=== PATIENT | male | born 1970 | race African-American/Black ===

== ENCOUNTER 2018-01-12 18:39 | Emergency (ER) | payer BC ==
[2018-01-12] MEDS ORDERED: diphenhydrAMINE 50 MG/ML SDV IVPUSH ONE (21:26)
[2018-01-12] MEDS ORDERED: Sodium Chloride 0.9% 1,000 ML IV ONE (21:26)
[2018-01-12] MEDS ORDERED: Ondansetron 4 MG Tab.DIS PO ONE (21:26)
[2018-01-12] MEDS ORDERED: Ketorolac 30 MG/ML SDV IVPUSH ONE (21:26)
[2018-01-12 22:04] LABS: CHLORIDE,CL 99 mmol/L (101-111); SODIUM,NA 130 mmol/L (135-145)
--- NOTE | 2018-01-12 23:09 | EDM.PDOC ---
ED HPI GENERAL MEDICAL PROBLEM - General Chief Complaint: Headache Stated Complaint: [id number] SEVER HEADACHE 4 DAYS FEVER Time Seen by Provider: 01/12/18 21:00 Source of Information: Reports: Patient History Limitations: Reports: No Limitations - History of Present Illness INITIAL COMMENTS - FREE TEXT/NARRATIVE: C/O frontal headache for past week after coming back from [place]. Has had headaches in past but always relieved with tylenol. Has had diarrhea x 8 today. No fevers. Appetite poor and not drinking much fluid today. 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 [No Known Home Meds] 01/12/18 [History] Past Medical History - Past Health History Medical/Surgical History: Denies Medical/Surgical History Social & Family History - Tobacco Use Smoking Status *Q: Never Smoker - Caffeine Use Caffeine Use: Reports: None - Recreational Drug Use Recreational Drug Use: No ED ROS GENERAL - Review of Systems Review Of Systems: See Below Constitutional: Reports: Malaise, Decreased Appetite. Denies: Chills HEENT: Reports: No Symptoms Respiratory: Reports: No Symptoms Cardiovascular: Reports: No Symptoms GI/Abdominal: Reports: Abdominal Pain, Diarrhea (watery) : Reports: No Symptoms Musculoskeletal: Reports: No Symptoms Neurological: Reports: Headache (frontal) - Physical Exam Exam: See Below Exam Limited By: No Limitations General Appearance: Alert, Anxious, Mild Distress Eye Exam: Bilateral Eye: EOMI, PERRL Nose: Normal Inspection Throat/Mouth: Normal Oropharynx Head Exam: Atraumatic, Normocephalic Neck: Normal Inspection, Full Range of Motion, Tender Lateral, Tender Midline. No: Lymphadenopathy (L), Lymphadenopathy (R) Respiratory/Chest: No Respiratory Distress, Lungs Clear, Normal Breath Sounds Cardiovascular: Normal Peripheral Pulses, Regular Rate, Rhythm GI/Abdominal: Normal Bowel Sounds, Soft, Tender (mild generalized). No: Distended, Guarding Neuro Exam (Abbreviated): Alert, Oriented, Normal Cognition Back Exam: Normal Inspection Extremities: Normal Inspection Psychiatric: Normal Affect, Normal Mood Skin Exam: Warm, Dry, Intact Course - Vital Signs Last Recorded V/S: Last Vital Signs Temp 99.8 F 01/12/18 22:20 Pulse 88 01/12/18 22:20 Resp 17 01/12/18 22:20 BP 122/56 L 01/12/18 22:20 Pulse Ox 99 01/12/18 22:20 - Orders/Labs/Meds Labs: Laboratory Tests 01/12/18 01/12/18 Range/Units 21:05 21:05 WBC 5.4 (5.0-10.0) 10^3/uL RBC 5.26 (4.6-6.2) 10^6/uL Hgb 11.6 L (14.0-18.0) g/dL Hct 34.1 L (40.0-54.0) % MCV 64.8 L (80-100) fL MCH 22.1 L (27.0-34.0) pg MCHC 34.0 (33.0-35.0) g/dL Plt Count 103 L (150-450) 10^3/uL Neut % (Auto) 55.3 (42.2-75.2) % Lymph % (Auto) 20.8 (20.5-50.1) % [place] % (Auto) 23.7 H (2-8) % Eos % (Auto) 0.0 L (1.0-3.0) % Baso % (Auto) 0.2 (0.0-1.0) % Add Manual Diff Yes Neutrophils % (Manual) 56 (42-75) % Band Neutrophils % 2 % Lymphocytes % (Manual) 23 (20-50) % Atypical Lymphs % 2 % Monocytes % (Manual) 17 H (2-8) % Sodium 130 L (135-145) mmol/L Potassium 3.2 L (3.6-5.0) mmol/L Chloride 99 L (101-111) mmol/L Carbon Dioxide 24.0 (21.0-31.0) mmol/L Anion Gap 10.2 BUN 14 (7-18) mg/dL Creatinine 1.2 (0.6-1.3) mg/dL Est Cr Clr Drug Dosing 58.14 mL/min Estimated GFR (MDRD) > 60 BUN/Creatinine Ratio 11.66 Glucose 177 H (74-105) mg/dL Calcium 8.5 (8.4-10.2) mg/dl Total Bilirubin 1.0 (0.2-1.0) mg/dL AST 34 (10-42) IU/L ALT 32 (10-60) IU/L Alkaline Phosphatase 70 (42-121) IU/L Total Protein 7.1 (6.7-8.2) g/dl Albumin 3.2 (3.2-5.5) g/dl Globulin 3.9 Albumin/Globulin Ratio 0.82 Amylase 48 (28-100) U/L Lipase 22 (22-51) U/L Meds: Medications Discontinued Medications Generic Name Dose Route Start Last Admin Trade Name Jessica PRN Reason Stop Dose Admin Diphenhydramine HCl 25 mg 01/12/18 21:26 01/12/18 21:32 Benadryl IVPUSH 01/12/18 21:27 25 mg ONETIME ONE Administration Sodium Chloride 1,000 mls @ 999 mls/hr 01/12/18 21:26 01/12/18 21:37 Normal Saline IV 01/12/18 22:26 999 mls/hr .BOLUS ONE Administration Ketorolac Tromethamine 30 mg 01/12/18 21:26 01/12/18 21:32 Toradol IVPUSH 01/12/18 21:27 30 mg ONETIME ONE Administration Ondansetron HCl 4 mg 01/12/18 21:26 01/12/18 21:31 Zofran Odt PO 01/12/18 21:27 4 mg ONETIME ONE Administration Departure - Departure Time of Disposition: 23:04 Disposition: Home, Self-Care 01 Condition: Good Clinical Impression: Gastroenteritis, Dehydration Headache Qualifiers: Headache type: unspecified Headache chronicity pattern: unspecified pattern Intractability: not intractable Qualified Code(s): R51 - Headache - Discharge Information Instructions: Dehydration, Adult, [id number] Referrals: PCP,None [Primary Care Provider] - Forms: ED Department Discharge Additional Instructions: tylenol or ibuprofen for fever increase fluids rest follow up if symptoms worsen
== END 2018-01-12 23:18 | disposition home or self-care (01) ==
LOC: DL.ED 18:39
DX: K52.9 Noninfective gastroenteritis and colitis, unspecified (principal); R51 Headache
CPT/HCPCS: 36415; 80053; 82150; 83690; 85025; 96361; 96374; 96375; 99283; A9270; J1200; J1885; J7030

== ENCOUNTER 2018-01-13 19:11 | Emergency (ER) | payer BC ==
[2018-01-13] MEDS ORDERED: Sodium Chloride 0.9% 10 ML Syringe FLUSH PRN (20:56)
[2018-01-13] MEDS ORDERED: Sodium Chloride 0.9% 1,000 ML IV ONE (20:57)
[2018-01-13] MEDS ORDERED: Ketorolac 30 MG/ML SDV IVPUSH ONE (20:57)
[2018-01-13] MEDS ORDERED: Acetaminophen 325 MG Tab PO ONE (21:29)
[2018-01-13 21:40] LABS: CHLORIDE,CL 101 mmol/L (101-111); SODIUM,NA 131 mmol/L (135-145)
[2018-01-13] MEDS ORDERED: Ibuprofen 600 MG Tab PO ONE (23:17)
[2018-01-13] MEDS ORDERED: Morphine 2 MG/ML Syringe IVPUSH ONE (23:17)
--- NOTE | 2018-01-13 23:21 | EDM.PDOC ---
ED HPI GENERAL MEDICAL PROBLEM - General Chief Complaint: Headache Stated Complaint: SEVERE HEADACHE Time Seen by Provider: 01/13/18 20:20 Source of Information: Reports: Patient, RN, RN Notes Reviewed History Limitations: Reports: No Limitations - History of Present Illness INITIAL COMMENTS - FREE TEXT/NARRATIVE: Pt presents to the ER with c/o headache and fever. Patient states he was seen in the ER the day prior for headache. Patient states the headache has persisted and gotten somewhat worse. He rates the headache a 8-9/10. Patient states he developed a fever and chills today. Patient denies N/V/D today. Patient states he has recently traveled outside the [place] to [place] for 3-4 weeks. He denies any insect bites while in [place]. Patient denies chest pains or SOB. Onset: Gradual Duration: Constant, Getting Worse Location: Reports: Head Quality: Reports: Pressure, Throbbing Severity: Moderate Improves with: Reports: None Worsens with: Reports: None Frontal Head Pain Score (Numeric/FACES): 10 - Related Data Allergies Allergy/AdvReac Type Severity Reaction Status Date / Time No Known Allergies Allergy Verified 01/12/18 19:48 Home Meds: Home Meds . [No Known Home Meds] 01/12/18 [History] Past Medical History - Past Health History Medical/Surgical History: Denies Medical/Surgical History Social & Family History - Family History Family Medical History: Noncontributory - Tobacco Use Smoking Status *Q: Never Smoker - Caffeine Use Caffeine Use: Reports: Soda - Recreational Drug Use Recreational Drug Use: No ED ROS GENERAL - Review of Systems Review Of Systems: ROS reveals no pertinent complaints other than HPI. - Physical Exam Exam: See Below Exam Limited By: Language Barrier General Appearance: Alert, WD/WN, No Apparent Distress Eye Exam: Bilateral Eye: EOMI, Normal Inspection, PERRL (5 brisk) Ears: Normal External Exam, Hearing Grossly Normal Nose: Normal Inspection Throat/Mouth: Normal Inspection, Normal Lips, Normal Teeth, Normal Gums, Normal Oropharynx, Normal Voice, No Airway Compromise Head Exam: Atraumatic, Normocephalic Neck: Normal Inspection, Supple, Non-Tender, Full Range of Motion Respiratory/Chest: No Respiratory Distress, Lungs Clear, Normal Breath Sounds, No Accessory Muscle Use, Chest Non-Tender Cardiovascular: Normal Peripheral Pulses, Regular Rate, Rhythm, No Edema, No Gallop, No JVD, No Murmur, No Rub GI/Abdominal: Normal Bowel Sounds, Soft, Non-Tender, No Organomegaly, No Distention, No Abnormal Bruit, No Mass (Male) Exam: Deferred Rectal (Males) Exam: Deferred Neuro Exam (Abbreviated): Alert, Oriented, CN II-XII Intact, Normal Cognition, Normal Gait, Normal Reflexes, No Motor/Sensory Deficits Back Exam: Normal Inspection, Full Range of Motion, NT Extremities: Normal Inspection, Normal Range of Motion, Non-Tender, No Pedal Edema, Normal Capillary Refill Psychiatric: Normal Affect, Normal Mood Skin Exam: Warm, Dry, Intact, Normal Color, No Rash Course - Vital Signs Last Recorded V/S: Last Vital Signs Temp 99.8 F 01/14/18 00:16 Pulse 89 01/14/18 00:16 Resp 16 01/14/18 00:16 BP 118/72 01/14/18 00:16 Pulse Ox 99 01/14/18 00:16 - Orders/Labs/Meds Orders: Active Orders 24 hr Category Date Time Status Peripheral IV Care [RC] . DIRECTED Care 01/13/18 20:57 Active CULTURE BLOOD [BC] Stat Lab 01/13/18 21:07 Received CULTURE BLOOD [BC] Stat Lab 01/13/18 21:12 Received INFLUENZA A+B AG SCREEN [RM] Stat Lab 01/13/18 21:40 Ordered UA W/MICROSCOPIC [URIN] Stat Lab 01/13/18 22:22 Ordered Blood Culture x2 Reflex Set [OM.PC] Stat Oth 01/13/18 20:57 Ordered Peripheral IV Insertion Adult [OM.PC] Stat Oth 01/13/18 20:56 Ordered Labs: Laboratory Tests 01/13/18 01/13/18 01/13/18 Range/Units 21:07 21:12 21:12 WBC 4.1 L (5.0-10.0) 10^3/uL RBC 5.21 (4.6-6.2) 10^6/uL Hgb 11.4 L (14.0-18.0) g/dL Hct 33.4 L (40.0-54.0) % MCV 64.1 L (80-100) fL MCH 21.9 L (27.0-34.0) pg MCHC 34.1 (33.0-35.0) g/dL Plt Count 83 L (150-450) 10^3/uL Neut % (Auto) 74.3 (42.2-75.2) % Lymph % (Auto) 14.2 L (20.5-50.1) % [place] % (Auto) 10.8 H (2-8) % Eos % (Auto) 0.5 L (1.0-3.0) % Baso % (Auto) 0.2 (0.0-1.0) % Add Manual Diff Yes Neutrophils % (Manual) 71 (42-75) % Band Neutrophils % 5 % Lymphocytes % (Manual) 16 L (20-50) % Monocytes % (Manual) 8 (2-8) % Sodium 131 L (135-145) mmol/L Potassium 3.4 L (3.6-5.0) mmol/L Chloride 101 (101-111) mmol/L Carbon Dioxide 25.0 (21.0-31.0) mmol/L Anion Gap 8.4 BUN 14 (7-18) mg/dL Creatinine 1.2 (0.6-1.3) mg/dL Est Cr Clr Drug Dosing 58.14 mL/min Estimated GFR (MDRD) > 60 BUN/Creatinine Ratio 11.66 Glucose 152 H (74-105) mg/dL Lactic Acid 1.1 (0.5-2.2) mmol/L Calcium 8.3 L (8.4-10.2) mg/dl Total Bilirubin 1.0 (0.2-1.0) mg/dL AST 32 (10-42) IU/L ALT 34 (10-60) IU/L Alkaline Phosphatase 74 (42-121) IU/L Total Protein 6.6 L (6.7-8.2) g/dl Albumin 2.9 L (3.2-5.5) g/dl Globulin 3.7 Albumin/Globulin Ratio 0.78 Urine Color (YELLOW) Urine Appearance (CLEAR) Urine pH (5.0-9.0) Ur Specific [place] (1.005-1.030) Urine Protein (NEGATIVE) Urine Glucose (UA) (NEGATIVE) Urine Ketones (NEGATIVE) Urine Occult Blood (NEGATIVE) Urine Nitrite (NEGATIVE) Urine Bilirubin (NEGATIVE) Urine Urobilinogen (0.2-1.0) mg/dL Ur Leukocyte Esterase (NEGATIVE) Urine RBC /HPF Urine WBC (0-5/HPF) /HPF Ur Epithelial Cells /HPF Amorphous Sediment (0/HPF) /HPF Urine Bacteria (0-FEW/HPF) /HPF Urine Mucus /LPF 01/13/18 Range/Units 22:22 WBC (5.0-10.0) 10^3/uL RBC (4.6-6.2) 10^6/uL Hgb (14.0-18.0) g/dL Hct (40.0-54.0) % MCV (80-100) fL MCH (27.0-34.0) pg MCHC (33.0-35.0) g/dL Plt Count (150-450) 10^3/uL Neut % (Auto) (42.2-75.2) % Lymph % (Auto) (20.5-50.1) % [place] % (Auto) (2-8) % Eos % (Auto) (1.0-3.0) % Baso % (Auto) (0.0-1.0) % Add Manual Diff Neutrophils % (Manual) (42-75) % Band Neutrophils % % Lymphocytes % (Manual) (20-50) % Monocytes % (Manual) (2-8) % Sodium (135-145) mmol/L Potassium (3.6-5.0) mmol/L Chloride (101-111) mmol/L Carbon Dioxide (21.0-31.0) mmol/L Anion Gap BUN (7-18) mg/dL Creatinine (0.6-1.3) mg/dL Est Cr Clr Drug Dosing mL/min Estimated GFR (MDRD) BUN/Creatinine Ratio Glucose (74-105) mg/dL Lactic Acid (0.5-2.2) mmol/L Calcium (8.4-10.2) mg/dl Total Bilirubin (0.2-1.0) mg/dL AST (10-42) IU/L ALT (10-60) IU/L Alkaline Phosphatase (42-121) IU/L Total Protein (6.7-8.2) g/dl Albumin (3.2-5.5) g/dl Globulin Albumin/Globulin Ratio Urine Color Yellow (YELLOW) Urine Appearance Slightly cloudy (CLEAR) Urine pH 7.5 (5.0-9.0) Ur Specific [place] 1.015 (1.005-1.030) Urine Protein Trace H (NEGATIVE) Urine Glucose (UA) Negative (NEGATIVE) Urine Ketones Negative (NEGATIVE) Urine Occult Blood Trace-lysed H (NEGATIVE) Urine Nitrite Negative (NEGATIVE) Urine Bilirubin Negative (NEGATIVE) Urine Urobilinogen 2.0 H (0.2-1.0) mg/dL Ur Leukocyte Esterase Negative (NEGATIVE) Urine RBC 5-10 H /HPF Urine WBC 0-5 (0-5/HPF) /HPF Ur Epithelial Cells Rare /HPF Amorphous Sediment Rare (0/HPF) /HPF Urine Bacteria Rare (0-FEW/HPF) /HPF Urine Mucus Rare /LPF Meds: Medications Discontinued Medications Generic Name Dose Route Start Last Admin Trade Name Freq PRN Reason Stop Dose Admin Acetaminophen 650 mg 01/13/18 21:29 01/13/18 21:37 Tylenol PO 01/13/18 21:30 650 mg NOW ONE Administration Sodium Chloride 1,000 mls @ 999 mls/hr 01/13/18 20:57 01/13/18 21:13 Normal Saline IV 01/13/18 21:57 999 mls/hr .BOLUS ONE Administration Ibuprofen 600 mg 01/13/18 23:17 01/13/18 23:29 Motrin PO 01/13/18 23:18 600 mg ONETIME ONE Administration Ketorolac Tromethamine 30 mg 01/13/18 20:57 01/13/18 21:14 Toradol IVPUSH 01/13/18 20:58 30 mg ONETIME ONE Administration Morphine Sulfate 2 mg 01/13/18 23:17 01/13/18 23:29 Morphine IVPUSH 01/13/18 23:18 2 mg ONETIME ONE Administration Sodium Chloride 10 ml 01/13/18 20:56 01/13/18 21:15 Saline Flush FLUSH 10 ml ASDIRECTED PRN Administration Keep Vein Open - Radiology Interpretation Free Text/Narrative:: head CT without contrast: IMPRESSION: Normal head/brain CT. See rad report Departure - Departure Time of Disposition: 00:08 Disposition: Home, Self-Care 01 Condition: Fair Clinical Impression: Headache Qualifiers: Headache type: unspecified Headache chronicity pattern: unspecified pattern Intractability: not intractable Qualified Code(s): R51 - Headache Fever Qualifiers: Fever type: unspecified Qualified Code(s): R50.9 - Fever, unspecified - Discharge Information Instructions: General Headache Without Cause, [id number], Fever, Adult, Easy- to-Read Forms: ED Department Discharge Additional Instructions: Tylenol and/or ibuprofen as directed for pain and fever Follow up with your primary care facility on Tuesday Drink plenty of water - My Orders Last 24 Hours: My Active Orders 01/13/18 20:56 Peripheral IV Insertion Adult [OM.PC] Stat 01/13/18 20:57 Peripheral IV Care [RC] . DIRECTED Blood Culture x2 Reflex Set [OM.PC] Stat 01/13/18 21:07 CULTURE BLOOD [BC] Stat 01/13/18 21:12 CULTURE BLOOD [BC] Stat 01/13/18 21:40 INFLUENZA A+B AG SCREEN [RM] Stat 01/13/18 22:22 UA W/MICROSCOPIC [URIN] Stat - Assessment/Plan Last 24 Hours: My Active Orders 01/13/18 20:56 Peripheral IV Insertion Adult [OM.PC] Stat 01/13/18 20:57 Peripheral IV Care [RC] . DIRECTED Blood Culture x2 Reflex Set [OM.PC] Stat 01/13/18 21:07 CULTURE BLOOD [BC] Stat 01/13/18 21:12 CULTURE BLOOD [BC] Stat 01/13/18 21:40 INFLUENZA A+B AG SCREEN [RM] Stat 01/13/18 22:22 UA W/MICROSCOPIC [URIN] Stat
== END 2018-01-14 00:23 | disposition home or self-care (01) ==
LOC: DL.ED 19:11
DX: R51 Headache (principal); R50.9 Fever, unspecified
CPT/HCPCS: 36415; 70450; 80053; 81001; 83605; 85025; 87040; 87804; 96361; 96374; 96375; 99284; A9270; J1885; J2270; J7030; J7050

== ENCOUNTER 2021-09-13 13:59 | Emergency (ER) | payer SELFPAY ==
--- NOTE | 2021-09-13 17:40 | EDM.PDOC ---
Scribed by Qing Alvarez 09/13/21 4713 for Guy Altamirano MD ED HPI GENERAL MEDICAL PROBLEM - General Chief Complaint: Headache Stated Complaint: BAD HEADACHE 5 DAYS / NO MEDS HELP Time Seen by Provider: 09/13/21 16:46 Source of Information: Reports: Patient, RN, RN Notes Reviewed History Limitations: Reports: No Limitations - History of Present Illness INITIAL COMMENTS - FREE TEXT/NARRATIVE: Patient presents to ED by POV onset of left sided headache on 08/25/21 with left maxillary and frontal sinus pain, pressure and drainage. The drainage has been primarily from the left nostril. Denies fevers or chills. He had several negative COVID tests. Last negative COVID test was at [facility], where he works earlier today. No history of migraine or other headache history. Denies photophobia, visual changes, sore throat, neck pain or stiffness. Onset: Gradual Duration: Getting Worse Location: Reports: Head Quality: Reports: Ache Severity: Severe Improves with: Reports: None Worsens with: Reports: None Associated Symptoms: Reports: No Other Symptoms - Related Data Allergies Allergy/AdvReac Type Severity Reaction Status Date / Time No Known Allergies Allergy Verified 01/12/18 19:48 Home Meds: Home Meds . [No Known Home Meds] 01/12/18 [History] Past Medical History - Past Health History Medical/Surgical History: Denies Medical/Surgical History Social & Family History - Family History Family Medical History: No Pertinent Family History - Tobacco Use Tobacco Use Status *Q: Never Tobacco User - Caffeine Use Caffeine Use: Reports: Soda - Living Situation & Occupation Occupation: Employed ED ROS GENERAL - Review of Systems Review Of Systems: Comprehensive ROS is negative, except as noted in HPI. - Physical Exam Exam: See Below Exam Limited By: No Limitations General Appearance: Alert, WD/WN, No Apparent Distress Eye Exam: Bilateral Eye: EOMI, Normal Inspection, PERRL Ears: Normal External Exam, Normal Canal, Hearing Grossly Normal, Normal TMs Nose: No Blood, Nasal Drainage (Purulent mucus drainage on left side only), Other (Injected inferior turbinates left > right) Throat/Mouth: Normal Inspection, Normal Lips, Normal Teeth, Normal Gums, Normal Oropharynx, Normal Voice, No Airway Compromise Head Exam: Atraumatic, Normocephalic, Sinus Tenderness (overlying left maxillary and frontal). No: Facial Swelling Neck: Normal Inspection, Supple, Non-Tender, Full Range of Motion. No: Lymphadenopathy (L), Lymphadenopathy (R) Respiratory/Chest: No Respiratory Distress, Lungs Clear, Normal Breath Sounds, No Accessory Muscle Use, Chest Non-Tender Cardiovascular: Regular Rate, Rhythm Neuro Exam (Abbreviated): Alert, Oriented, CN II-XII Intact, Normal Cognition, Normal Gait, No Motor/Sensory Deficits Psychiatric: Normal Affect, Normal Mood Skin Exam: Warm, Dry, Intact, Normal Color, No Rash Course - Vital Signs Last Recorded V/S: Last Vital Signs Temp 99.8 F 09/13/21 16:55 Pulse 86 09/13/21 16:55 Resp 16 09/13/21 16:55 BP 177/111 H 09/13/21 16:55 Pulse Ox 98 09/13/21 16:55 - Orders/Labs/Meds Orders: Active Orders 24 hr Category Date Time Status Head wo Cont [CT] Stat Exams 09/13/21 16:54 Ordered Max Facial Sinus wo Cont [CT] Stat Exams 09/13/21 16:54 Taken COVID-19/FLU A+B/RSV [MOLEC] Stat Lab 09/13/21 17:00 Received Meds: Medications Discontinued Medications Generic Name Dose Route Start Last Admin Trade Name Jessica PRN Reason Stop Dose Admin Amoxicillin/Clavulanate Potassium 1 tab 09/13/21 17:34 Amoxicillin/Clavulanate K 875-125 Mg Tab PO 09/13/21 17:35 ONETIME ONE Dexamethasone 8 mg 09/13/21 17:34 Dexamethasone 4 Mg Tab PO 09/13/21 17:35 ONETIME ONE - Radiology Interpretation Free Text/Narrative:: CT Head, CT Max/facial: extensive left pansinusitis, no I.C. hemorrhage, see Rad. report. Departure - Departure Time of Disposition: 17:31 Disposition: Home, Self-Care 01 Condition: Good Clinical Impression: Sinusitis Qualifiers: Sinusitis location: pansinusitis Chronicity: subacute Qualified Code(s): J01.40 - Acute pansinusitis, unspecified - Discharge Information *PRESCRIPTION DRUG MONITORING PROGRAM REVIEWED*: Not Applicable *COPY OF PRESCRIPTION DRUG MONITORING REPORT IN PATIENT AMAURY: Not Applicable Instructions: Sinusitis, Adult, Sinus Headache, [id number] Forms: ED Department Discharge Additional Instructions: Rx: Augmentin 875mg Rx: Dexamethasone 4mg Use over the counter Coricidin HBP every day for 14 days. Follow directions on package for dosing and precautions. Follow up in clinic in 10 to 14 days for sinus recheck, and referral to Ear/Nose/Throat specialist if not improving as expected. Sepsis Event Note (ED) - Focused Exam Vital Signs: Vital Signs Temp Pulse Resp BP Pulse Ox 09/13/21 16:55 99.8 F 86 16 177/111 H 98 - My Orders Last 24 Hours: My Active Orders 09/13/21 16:54 Head wo Cont [CT] Stat Max Facial Sinus wo Cont [CT] Stat 09/13/21 17:00 COVID-19/FLU A+B/RSV [MOLEC] Stat - Assessment/Plan Last 24 Hours: My Active Orders 09/13/21 16:54 Head wo Cont [CT] Stat Max Facial Sinus wo Cont [CT] Stat 09/13/21 17:00 COVID-19/FLU A+B/RSV [MOLEC] Stat I have read and agree with the documentation that has been completed regarding this visit. By signing this record, I attest that the documentation was completed in my physical presence and is an accurate record of the encounter.
[2021-09-13 17:45] LABS: CORONAVIRUS COVID-19 NAA NEGATIVE (NEGATIVE); RESPIRATORY SYNCYTIAL VIR NAA NEGATIVE (NEGATIVE)
[2021-09-13] MEDS: Dexamethasone 4 MG Tab PO ONE (17:50)
[2021-09-13] MEDS: Amoxicillin/Clavulanate K 875-125 MG Tab PO ONE (17:50)
--- NOTE | 2021-09-13 17:58 | CT ---
PROCEDURE INFORMATION: Exam: CT Head Without Contrast Exam date and time: 09/13/2021 5:05 PM Age: 50 years old Clinical indication: Other: Left side pain--no trauma; Additional info: Worsening lft sided headache since 08/25/21 TECHNIQUE: Imaging protocol: Computed tomography of the head without contrast. Sagittal and coronal reformatted images were created and reviewed. Radiation optimization: All CT scans at this facility use at least one of these dose optimization techniques: automated exposure control; mA and/or kV adjustment per patient size (includes targeted exams where dose is matched to clinical indication); or iterative reconstruction. COMPARISON: No relevant prior studies available. FINDINGS: Brain: No acute intracranial hemorrhage. No acute infarct. No intra-axial or extra-axial masses. Ashley-white matter differentiation is preserved. No cerebral edema. No extra-axial fluid collections. No midline shift. No evidence for Chiari 1 malformation. Bilateral basal ganglia calcifications. Cerebral ventricles: No hydrocephalus. Paranasal sinuses: Near complete opacification in the visualized left maxillary sinus and left ethmoid sinuses. Mild mucoperiosteal thickening in the left frontal sinus with a large air-fluid level in the left frontal sinus. Mastoid air cells: Mastoid air cells are clear bilaterally. Orbital cavity: Globes and lenses, extraocular muscles, and optic nerves are intact bilaterally. No acute intraorbital abnormality. Bones/joints: No acute fracture. Soft tissues: No acute abnormality of the extracranial soft tissues. IMPRESSION: 1. No acute abnormality of the brain. 2. Near complete opacification in the visualized left maxillary sinus and left ethmoid sinuses. Mild mucoperiosteal thickening in the left frontal sinus with a large air-fluid level in the left frontal sinus. 3. Incidental/nonacute findings are listed in the report.
--- NOTE | 2021-09-13 18:02 | CT ---
PROCEDURE INFORMATION: Exam: CT Maxillofacial Without Contrast, Sinus Exam date and time: 09/13/2021 5:05 PM Age: 50 years old Clinical indication: Other: Left sided pain--no known trauma; Additional info: Worsening lft sided headache since 08/25/21 TECHNIQUE: Imaging protocol: CT Maxillofacial without contrast. Focus on the sinuses. Sagittal and coronal reformatted images were created and reviewed. Radiation optimization: All CT scans at this facility use at least one of these dose optimization techniques: automated exposure control; mA and/or kV adjustment per patient size (includes targeted exams where dose is matched to clinical indication); or iterative reconstruction. COMPARISON: No relevant prior studies available. FINDINGS: Frontal sinuses: Right frontal sinus is clear. Mild mucoperiosteal thickening in the left frontal sinus. Large air-fluid level in the left frontal sinus. Ethmoid air cells: Right ethmoid sinuses are clear. Near complete opacification of the left ethmoid sinuses. Sphenoid sinuses: Right and left sphenoid sinuses are clear. Maxillary sinuses: Mild to moderate mucoperiosteal thickening in the right maxillary sinus. Near complete opacification of the left maxillary sinus. Nasal cavity/Septum: Mild left nasal septal deviation. The right ostiomeatal complex is narrowed. The left ostiomeatal complex is occluded. Orbital cavity: Globes and lenses, extraocular muscles, and optic nerves are intact bilaterally. No acute intraorbital abnormality. Bones/joints: Right and left temporomandibular joints are intact. Right and left pterygoid plates are intact. No acute fracture. Soft tissues: No acute abnormality of the extracranial soft tissues. Mastoid air cells: Visualized mastoid air cells are clear. Dental: Apical lucencies in the right and left 1st maxillary molars and the left 1st mandibular molar. IMPRESSION: 1. Findings suspicious sinusitis in multiple paranasal sinuses ranging from mild to severe. Associated findings suspicious for acute on chronic sinusitis in the left frontal sinus. 2. The right ostiomeatal complex is narrowed. The left ostiomeatal complex is occluded. 3. Periodontal disease involving teeth. 4. Incidental/nonacute findings are listed in the report.
== END 2021-09-13 17:55 | disposition home or self-care (01) ==
LOC: DL.ED 13:59
DX: J01.40 Acute pansinusitis, unspecified (principal); Z20.822 Contact with and (suspected) exposure to COVID-19
CPT/HCPCS: 0241U; 70450; 70486; 99284; A9270; J8540

== ENCOUNTER 2021-10-26 14:55 | Emergency (ER) | payer SELFPAY ==
[2021-10-26 17:22] LABS: CORONAVIRUS COVID-19 NAA NEGATIVE (NEGATIVE)
== END 2021-10-26 18:44 | disposition home or self-care (01) ==
LOC: DL.ED 14:55
DX: J32.9 Chronic sinusitis, unspecified (principal); Z20.822 Contact with and (suspected) exposure to COVID-19
CPT/HCPCS: 0240U; 99284